=== PATIENT | male | born 1980 | race Caucasian/White ===

== ENCOUNTER → 2016-08-31 | Outpatient (CLI) | payer OTHER ==
[~2016-08-31] MED LIST: CHOL4POW3 PO; GADOBUTROL 10 MMOL/10 ML VIAL ONE; OXYB5TAB7 PO
== END | disposition home or self-care (01) ==
LOC: CFH 10:21
PROVIDERS: ATTEND Internal Medicine
DX: D50.9 Iron deficiency anemia, unspecified (principal)
CPT/HCPCS: 74183; A9585

== ENCOUNTER → 2017-02-27 | Outpatient (CLI) | payer OTHER | END | disposition home or self-care (01) | LOC: CFH 09:18 | PROVIDERS: ATTEND Internal Medicine | DX: K76.89 Other specified diseases of liver (principal); C18.1 Malignant neoplasm of appendix; D50.9 Iron deficiency anemia, unspecified | CPT/HCPCS: 74183; A9585 ==

== ENCOUNTER → 2017-06-28 | Outpatient (CLI) | payer OTHER | END | disposition home or self-care (01) | LOC: CFH 07:39 | PROVIDERS: ATTEND Internal Medicine | DX: D50.9 Iron deficiency anemia, unspecified (principal); C18.1 Malignant neoplasm of appendix | CPT/HCPCS: 74183; A9585 ==

== ENCOUNTER 2017-07-20 12:55 | Emergency (ER) | payer OTHER ==
[~2017-07-20] VITALS: Ht 177.8 cm; Wt 70.1 kg
[~2017-07-20 12:55] MED LIST changes: -GADOBUTROL 10 MMOL/10 ML VIAL ONE
[2017-07-20 13:01] VITALS: BP 114/76
== END 2017-07-20 14:18 | disposition home or self-care (01) ==
LOC: ED 14:12
DX: M79.662 Pain in left lower leg (principal); Z98.890 Other specified postprocedural states; Z85.038 Personal history of other malignant neoplasm of large intestine
CPT/HCPCS: 99284

== ENCOUNTER → 2018-03-08 | Outpatient (CLI) | payer OTHER ==
[~2018-03-08] MED LIST changes: +GADOBUTROL 7.5 MMOL/7.5 ML VIAL ONE
== END | disposition home or self-care (01) ==
LOC: CFH 12:55
PROVIDERS: ATTEND Internal Medicine
DX: Q44.6 Cystic disease of liver (principal); M51.26 Other intervertebral disc displacement, lumbar region
CPT/HCPCS: 72197; 74183; A9585

== ENCOUNTER 2019-05-11 22:38 | Emergency (ER) | payer OTHER ==
[~2019-05-11] VITALS: Ht 177.8 cm; Wt 66.8 kg
[~2019-05-11 22:38] MED LIST changes: -GADOBUTROL 7.5 MMOL/7.5 ML VIAL ONE; +OXYB5TAB10 PO; -OXYB5TAB7 PO
[2019-05-11] MEDS ORDERED: COLE625T12 PO (22:52)
[2019-05-11 23:13] LABS: CULTURE INDICATED? YES; MICROSCOPIC INDICATED
[2019-05-11 23:27] LABS: ALBUMIN 2.9 g/dL (3.4-5.0); ANION GAP 5 mmol/L (5-15); CALCIUM 7.6 mg/dL (8.5-10.1); CHLORIDE 112 mmol/L (98-107); CREATININE 0.85 mg/dL (0.7-1.3)
[2019-05-11 23:32] LABS: ALANINE AMINOTRANSFERASE 47 U/L (12-78); ALKALINE PHOSPHATASE 62 U/L (45-117); BILIRUBIN,TOTAL 0.3 mg/dL (0.2-1.0); TOTAL PROTEIN 5.7 g/dL (6.4-8.2)
[2019-05-11 23:47] LABS: MD YES; MEAN CORPUSCULAR HEMOGLOBIN 26.7 pg (27.5-34.5); MEAN CORPUSCULAR VOLUME 90.9 fL (81-97); MEAN PLATELET VOLUME 8.5 fL (7.4-10.4); PLATELET COUNT 462 x10^3/uL (130-400); RED BLOOD COUNT 2.82 x10^6/uL (4.38-5.82); RED CELL DISTRIBUTION WIDTH 27.5 % (9.4-14.8)
[2019-05-11 23:48] LABS: ANISOCYTOSIS 1+; BASOS#(MANUAL) 0.47 x10^3/uL (0-0.1); BASOS% (MANUAL) 3 % (0-1); EOS#(MANUAL) 0.16 x10^3/uL (0.0-0.4); EOS% (MANUAL) 1 % (1-7); LYMPH#(MANUAL) 0.79 x10^3/uL (1-3.4); LYMPHS% (MANUAL) 5 % (22-44); MONOS#(MANUAL) 0.47 x10^3/uL (0.3-2.7); MONOS% (MANUAL) 3 % (2-9); POLYCHROMASIA 1+; SEG#(MANUAL) 13.82 x10^3/uL (1.8-6.8); SEGS% (MANUAL) 88 % (42-75); TARGET CELLS 1+
[2019-05-11 23:52] LABS: <PLATELET ESTIMATE> INCREASED; <PLT MORPHOLOGY> NORMAL PLT MORPH
[2019-05-11 23:53] LABS: MEAN CORPUSCULAR HGB CONC 29.4 g/dL (33.2-36.2)
[2019-05-12 00:39] VITALS: BP 123/70
--- NOTE | 2019-05-12 00:39 | NUR ---
PT RESTING COMFORTABLY IN BED. NO NEEDS AT THIS TIME.
== END 2019-05-12 01:41 | disposition home or self-care (01) ==
LOC: ED 22:54
DX: R31.0 Gross hematuria (principal); D53.9 Nutritional anemia, unspecified; R10.9 Unspecified abdominal pain; R11.10 Vomiting, unspecified
CPT/HCPCS: 36415; 74176; 80053; 81001; 83690; 85025; 87077; 87086; 87186; 99284

== ENCOUNTER 2019-07-02 13:12 | Outpatient (CLI) | payer OTHER ==
[~2019-07-02 13:12] MED LIST changes: +COLE625T12 PO
[2019-07-02] MEDS ORDERED: OMNIPAQUE 350 MG/ML, 150 ML BOTTLE ONE (13:57)
== END 2019-07-02 23:59 | disposition home or self-care (01) ==
LOC: CFH 13:12
PROVIDERS: ATTEND Physician Assistant
DX: N32.89 Other specified disorders of bladder (principal)
CPT/HCPCS: 74177; Q9967

== ENCOUNTER → 2019-07-15 | Outpatient (CLI) | payer OTHER ==
[~2019-07-15] MED LIST changes: +GADOTERATE 7.5 MMOL/15 ML SYR ONE
== END | disposition home or self-care (01) ==
LOC: RAD 08:32
PROVIDERS: ATTEND Internal Medicine
DX: C18.1 Malignant neoplasm of appendix (principal); D50.0 Iron deficiency anemia secondary to blood loss (chronic); N32.89 Other specified disorders of bladder; Z90.49 Acquired absence of other specified parts of digestive tract
CPT/HCPCS: 72197; 74183; A9575

== ENCOUNTER 2019-10-04 08:50 | Outpatient (CLI) | payer OTHER ==
[~2019-10-04 08:50] MED LIST changes: -GADOTERATE 7.5 MMOL/15 ML SYR ONE
[2019-10-04] MEDS ORDERED: Iron (09:29)
[2019-10-04] MEDS ORDERED: CHOL400T55 PO (09:29)
[2019-10-04] MEDS ORDERED: Vitamin B12 PO (09:29)
== END 2019-10-04 23:59 | disposition home or self-care (01) ==
LOC: STAR 08:50
PROVIDERS: ATTEND Internal Medicine
DX: Z11.59 Encounter for screening for other viral diseases (principal)
CPT/HCPCS: U0001-CS

== ENCOUNTER 2019-10-08 10:37 | Day surgery (SDC) | payer OTHER ==
[~2019-10-08] VITALS: Ht 177.8 cm; Wt 64.8 kg
[~2019-10-08 10:37] MED LIST changes: +CHOL400T55 PO; +Iron; +Vitamin B12 PO
[2019-10-08 10:58] VITALS: BP 124/81
[2019-10-08] MEDS ORDERED: LACTATED RINGERS 1,000 ML IV SCH (11:02)
[2019-10-08] MEDS ORDERED: CHLORHEXIDINE 15 ML UDC MM ONE (11:30)
[2019-10-08] MEDS ORDERED: PROPOFOL 10 MG/ML, 20ML ONE (11:54)
[2019-10-08] MEDS ORDERED: PROPOFOL 10 MG/ML, 50ML ONE (11:54)
[2019-10-08] MEDS ORDERED: CEFAZOLIN 1,000 MG ONE (11:54)
[2019-10-08] MEDS ORDERED: MIDAZOLAM 1 MG/ML, 2ML ONE (11:55)
[2019-10-08] MEDS ORDERED: OXYcodone 5 MG/5 ML ORAL.SOL UDC PO PRN (12:00)
[2019-10-08] MEDS ORDERED: FENTANYL PF 100 MCG/2ML IV PRN (12:00)
[2019-10-08] MEDS ORDERED: ONDANSETRON 2MG/ML, 2ML IVPush PRN (12:00)
== END 2019-10-08 14:30 | disposition home or self-care (01) ==
LOC: OUT 10:37
PROVIDERS: ATTEND Internal Medicine
DX: K62.89 Other specified diseases of anus and rectum (principal); D12.8 Benign neoplasm of rectum; C18.1 Malignant neoplasm of appendix; D50.0 Iron deficiency anemia secondary to blood loss (chronic); Z79.899 Other long term (current) drug therapy; Z88.8 Allergy status to other drugs, medicaments and biological substances
CPT/HCPCS: 45338; 45341; 88305; A4648; J0690; J2250; J2704; J7120

== ENCOUNTER 2019-10-28 13:40 | Outpatient (CLI) | payer OTHER ==
[2019-10-28] MEDS ORDERED: OMNIPAQUE 350 MG/ML, 150 ML BOTTLE ONE (14:52)
== END 2019-10-28 23:59 | disposition home or self-care (01) ==
LOC: CFH 13:40
PROVIDERS: ATTEND Family Medicine
DX: C18.1 Malignant neoplasm of appendix (principal); N32.89 Other specified disorders of bladder
CPT/HCPCS: 74178; Q9967

== ENCOUNTER → 2020-04-10 | Outpatient (CLI) | payer OTHER ==
[~2020-04-10] MED LIST changes: +OMNIPAQUE 350 MG/ML, 100ML BOTTLE ONE
== END | disposition home or self-care (01) ==
LOC: RAD 08:20
PROVIDERS: ATTEND Family Medicine
DX: C78.6 Secondary malignant neoplasm of retroperitoneum and peritoneum (principal); D12.1 Benign neoplasm of appendix; N32.89 Other specified disorders of bladder
CPT/HCPCS: 74177; Q9967